=== PATIENT | female | born 1995 | race American Indian/Alaskan Native ===

== ENCOUNTER 2016-07-31 14:57 | Emergency (ER) | payer SELFPAY ==
[2016-07-31 15:35] VITALS: BP 133/84
--- NOTE | 2016-07-31 16:46 | Emergency Department Report ---
Chief Complaint: Vaginal Bleeding Stated Complaint: MARIA DOLORES Time Seen by Provider: 07/31/16 16:34 - HPI History of Present Illness: 20-year-old female comes in for distal feel well. Patient reports she's had vaginal bleeding for approximately 3 weeks today she thinks he may have. Not sure she complains of lower abdominal pain and back pain.. - Exam Vital Signs: Vital Signs 07/31/16 15:25 Temperature 98.1 F Pulse Rate 83 Respiratory 16 Rate Blood Pressure 133/84 O2 Sat by Pulse 100 Oximetry Physical Exam: Patient is alert and oriented difficult to get a history. Cardiovascular S1-S2 regular rate and rhythm respiratory clear to auscultation bilaterally abdomen soft suprapubic tenderness neuro exam intact EOMI, tongue protrusion with deviation to right and left, further the shoulders intact hand gis analyst equal, MSE screening note: Focused history and physical exam performed. Due to findings the following was ordered: CBC CMP UA serum ordered patient be evaluated the back ED Disposition for MSE Condition: Stable
[2016-07-31 17:15] LABS: Hematocrit 40.6 % (30.3-42.9); Hemoglobin 13.3 gm/dl (10.1-14.3); Mean Corpuscular HGB Conc 33 % (30-34); Mean Corpuscular Hemoglobin 33 pg (28-32); Mean Corpuscular Volume 99 fl (79-97); Platelet Count 352 K/mm3 (140-440); Red Blood Count 4.09 M/mm3 (3.65-5.03); Red Cell Distribution Width 13.1 % (13.2-15.2); White Blood Count 13.3 K/mm3 (4.5-11.0)
[2016-07-31 17:34] LABS: Blood Urea Nitrogen 8 mg/dL (7-17); Calcium 9.1 mg/dL (8.4-10.2); Carbon Dioxide 25 mmol/L (22-30); Chloride 102.6 mmol/L (98-107); Glucose 97 mg/dL (65-100); Potassium 4.2 mmol/L (3.6-5.0); Sodium 140 mmol/L (137-145)
[2016-07-31 18:14] LABS: Anion Gap 17 mmol/L
[2016-07-31 18:28] LABS: Bilirubin,Urine NEG (Negative); Blood,Urine MOD (Negative); Ketones,Urine TR mg/dL (Negative); Leukocyte Esterase,Urine LG (Negative); Nitrite,Urine NEG (Negative); Protein,Urine <15 mg/dL mg/dL (Negative)
--- NOTE | 2016-08-01 13:53 | ED Elopement Review ---
ED Pt Elopement review - Results review Lab results: Laboratory Tests 07/31/16 07/31/16 07/31/16 17:02 17:02 17:02 WBC 13.3 H RBC 4.09 Hgb 13.3 Hct 40.6 MCV 99 H MCH 33 H MCHC 33 RDW 13.1 L Plt Count 352 Sodium 140 Potassium 4.2 Chloride 102.6 Carbon Dioxide 25 Anion Gap 17 BUN 8 Creatinine 0.5 L Estimated GFR > 60 BUN/Creatinine Ratio 16.00 Glucose 97 Calcium 9.1 HCG, Quant < 2 Urine Color Urine Turbidity Urine pH Ur Specific [place] Urine Protein Urine Glucose (UA) Urine Ketones Urine Blood Urine Nitrite Urine Bilirubin Urine Urobilinogen Ur Leukocyte Esterase Urine WBC (Auto) Urine RBC (Auto) U Epithel Cells (Auto) 07/31/16 17:56 WBC RBC Hgb Hct MCV MCH MCHC RDW Plt Count Sodium Potassium Chloride Carbon Dioxide Anion Gap BUN Creatinine Estimated GFR BUN/Creatinine Ratio Glucose Calcium HCG, Quant Urine Color Yellow Urine Turbidity Clear Urine pH 9.0 H Ur Specific [place] 1.013 Urine Protein <15 mg/dl Urine Glucose (UA) Neg Urine Ketones Tr Urine Blood Mod Urine Nitrite Neg Urine Bilirubin Neg Urine Urobilinogen 2.0 Ur Leukocyte Esterase Lg Urine WBC (Auto) 78.0 H Urine RBC (Auto) 12.0 U Epithel Cells (Auto) 2.0 - Call Back decision Pt Call Back Decision: Pt to F/U with PMD (patient with a urinary tract infection)
== END 2016-07-31 23:52 | disposition left against medical advice (07) ==
LOC: ED 14:57
DX: N93.9 Abnormal uterine and vaginal bleeding, unspecified (principal); R10.30 Lower abdominal pain, unspecified; M54.9 Dorsalgia, unspecified; Z53.21 Procedure and treatment not carried out due to patient leaving prior to being seen by health care provider
CPT/HCPCS: 36415; 80048; 81001; 84702; 85027